=== PATIENT | female | born 1995 | race Caucasian/White ===

== ENCOUNTER 2019-07-22 19:28 | Emergency (ER) | payer OTHER ==
[~2019-07-22] VITALS: Ht 165.1 cm; Wt 40.8 kg
== END 2019-07-23 00:47 | disposition home or self-care (01) ==
LOC: ER 19:28
DX: O26.891 Other specified pregnancy related conditions, first trimester (principal); R11.2 Nausea with vomiting, unspecified; Z34.01 Encounter for supervision of normal first pregnancy, first trimester

== ENCOUNTER 2019-07-30 10:14 | Inpatient (IN) | payer OTHER ==
[~2019-07-30] VITALS: Ht 167.6 cm; Wt 43.1 kg
[2019-07-30] MEDS ORDERED: PRENATAL TABLE1 EAC3 (10:25)
[2019-07-30] MEDS ORDERED: METOCLOPRAMIDE10 MG (10:26)
== END 2019-08-03 12:06 | disposition home or self-care (01) | DRG 833 ==
LOC: ER 10:14 → OB/GYN 21:52
PROVIDERS: ADMIT Obstetrics & Gynecology
PROC: BY49ZZZ Ultrasonography of First Trimester, Single Fetus (ICD-10-PCS; principal; 2019-07-30)
PROC: 8E0ZXY6 Isolation (ICD-10-PCS; 2019-08-01)
PROC: BW40ZZZ Ultrasonography of Abdomen (ICD-10-PCS; 2019-08-02)
DX: O26.851 Spotting complicating pregnancy, first trimester (principal); O21.0 Mild hyperemesis gravidarum; B96.0 Mycoplasma pneumoniae [M. pneumoniae] as the cause of diseases classified elsewhere

== ENCOUNTER 2020-01-08 14:05 | Inpatient (IN) | payer OTHER ==
[~2020-01-08] VITALS: Ht 165.1 cm; Wt 46.7 kg
[~2020-01-08 14:05] MED LIST: METOCLOPRAMIDE10 MG; PRENATAL TABLE1 EAC3
[2020-01-08] MEDS ORDERED: PRENATAL CAPLE1 EAC1 PO (14:27)
== END 2020-01-11 12:41 | disposition home or self-care (01) | DRG 833 ==
LOC: LDR 14:05 → OB/GYN 01-09 02:07
PROVIDERS: ADMIT Obstetrics & Gynecology
PROC: 4A1HXFZ Monitoring of Products of Conception, Cardiac Rhythm, External Approach (ICD-10-PCS; principal; 2020-01-08)
DX: O60.03 Preterm labor without delivery, third trimester (principal); Z3A.32 32 weeks gestation of pregnancy

== ENCOUNTER 2020-02-19 09:32 | Inpatient (IN) | payer OTHER ==
[~2020-02-19] VITALS: Ht 165.1 cm; Wt 50.8 kg
[~2020-02-19 09:32] MED LIST changes: +PRENATAL CAPLE1 EAC1 PO
== END 2020-02-21 17:07 | DRG 807 ==
LOC: LDR 09:32 → OB/GYN 09:32
PROVIDERS: ADMIT Obstetrics & Gynecology; ATTEND Obstetrics & Gynecology
PROC: 10E0XZZ Delivery of Products of Conception, External Approach (ICD-10-PCS; principal; 2020-02-19)
PROC: 4A0HXFZ Measurement of Products of Conception, Cardiac Rhythm, External Approach (ICD-10-PCS; 2020-02-19)
DX: O80 Encounter for full-term uncomplicated delivery (principal); Z37.0 Single live birth; Z3A.38 38 weeks gestation of pregnancy